=== PATIENT | female | born 1950 | race African-American/Black ===

== ENCOUNTER → 2017-10-14 | Outpatient (CLI) | payer MEDICARE | END | disposition home or self-care (01) | LOC: PNCL 13:41 | DX: M50.322 Other cervical disc degeneration at C5-C6 level (principal); M48.02 Spinal stenosis, cervical region; I10 Essential (primary) hypertension; M19.90 Unspecified osteoarthritis, unspecified site; M79.602 Pain in left arm; Z90.710 Acquired absence of both cervix and uterus | CPT/HCPCS: 99214 ==

== ENCOUNTER 2017-10-15 06:08 | Emergency (ER) | payer MEDICARE | END 2017-10-15 06:45 | disposition home or self-care (01) | LOC: ER 06:08 | DX: H10.89 Other conjunctivitis (principal); I10 Essential (primary) hypertension; I50.9 Heart failure, unspecified; Z88.2 Allergy status to sulfonamides | CPT/HCPCS: 99283 ==

== ENCOUNTER → 2017-11-24 | Outpatient (CLI) | payer MEDICARE | END | disposition home or self-care (01) | LOC: PNCL 08:18 | DX: M50.30 Other cervical disc degeneration, unspecified cervical region (principal) | CPT/HCPCS: G0463 ==

== ENCOUNTER → 2017-11-25 | Outpatient (CLI) | payer MEDICARE | END | disposition home or self-care (01) | LOC: MRI 11:54 | DX: M48.02 Spinal stenosis, cervical region (principal); M19.012 Primary osteoarthritis, left shoulder; M50.13 Cervical disc disorder with radiculopathy, cervicothoracic region; Z88.1 Allergy status to other antibiotic agents; I11.0 Hypertensive heart disease with heart failure; I50.9 Heart failure, unspecified; Z90.710 Acquired absence of both cervix and uterus | CPT/HCPCS: 72141 ==

== ENCOUNTER → 2017-12-08 | Outpatient (CLI) | payer MEDICARE | END | disposition home or self-care (01) | LOC: PNCL 08:23 | DX: M50.10 Cervical disc disorder with radiculopathy, unspecified cervical region (principal); M48.02 Spinal stenosis, cervical region | CPT/HCPCS: G0463 ==